=== PATIENT | male | born 1950 | race Caucasian/White ===

== ENCOUNTER 2016-11-20 13:36 | Outpatient (CLI) | payer MEDICARE, BC, OTHER | END 2016-11-20 13:37 | disposition home or self-care (01) | DX: K21.9 Gastro-esophageal reflux disease without esophagitis (principal); E03.9 Hypothyroidism, unspecified; Z12.5 Encounter for screening for malignant neoplasm of prostate; Z13.220 Encounter for screening for lipoid disorders; N40.1 Benign prostatic hyperplasia with lower urinary tract symptoms; K29.70 Gastritis, unspecified, without bleeding; Z78.9 Other specified health status | CPT/HCPCS: 36415; 80053; 80061; 84443; 85025; 86803; 87339; G0103 ==

== ENCOUNTER 2017-05-10 10:26 | Day surgery (SDC) | payer MEDICARE, BC, OTHER ==
[2017-05-10] MEDS ORDERED: LACTATED RINGERS 1,000 ML IV ONE (10:47)
[2017-05-10] MEDS ORDERED: MIDAZOLAM 2 MG/2 ML VIAL IVP ONE (13:09)
[2017-05-10] MEDS ORDERED: fentaNYL 100 MCG/2 ML VIAL IVP ONE (13:09)
[2017-05-10] MEDS ORDERED: LIDO GARGLE 30 ML BOTTLE TOP ONE (13:14)
[2017-05-10] MEDS ORDERED: BENZOCAINE/TETRACAINE/BUTAMBEN SPRAY 56 GM TOP ONE (13:14)
[2017-05-10 14:51] VITALS: BP 127/68
== END 2017-05-10 10:27 | disposition home or self-care (01) ==
LOC: SDS 10:26
PROVIDERS: ATTEND Surgery
PROC: 0DJ08ZZ Inspection of Upper Intestinal Tract, Via Natural or Artificial Opening Endoscopic (ICD-10-PCS; principal; 2017-05-10 12:00)
PROC: 0DJD8ZZ Inspection of Lower Intestinal Tract, Via Natural or Artificial Opening Endoscopic (ICD-10-PCS; 2017-05-10 12:00)
DX: Z12.11 Encounter for screening for malignant neoplasm of colon (principal); K21.9 Gastro-esophageal reflux disease without esophagitis; K22.2 Esophageal obstruction; K64.8 Other hemorrhoids
CPT/HCPCS: 43235; A9270; G0121; J7120

== ENCOUNTER 2017-11-30 08:00 | Outpatient (CLI) | payer MEDICARE, BC, OTHER ==
[2017-11-30 13:59] LABS: THYROID STIMULATING HORMONE 0.11 uIU/mL (0.34-5.60)
[2017-11-30 14:00] LABS: BASOPHILS # (AUTO) 0.1 10^3/uL (0.0-0.1); BASOPHILS % (AUTO) 1.2 %; EOSINOPHILS # (AUTO) 0.3 10^3/uL (0.0-0.7); EOSINOPHILS % (AUTO) 5.2 %; HGB - HEMOGLOBIN 16.6 g/dL (14.0-18.0); LYMPHOCYTES # (AUTO) 1.3 10^3/uL (1.5-3.5); LYMPHOCYTES % (AUTO) 25.1 %; MEAN CORPUSCULAR HEMOGLOBIN 31.2 pg (27.0-31.0); MEAN CORPUSCULAR HGB CONC 34.1 g/dL (32.0-36.0); MEAN CORPUSCULAR VOLUME 91.4 fL (80.0-94.0); MEAN PLATELET VOLUME 9.4 fL (7.4-11.4); MONOCYTES # (AUTO) 0.5 10^3/uL (0.0-1.0); MONOCYTES % (AUTO) 8.8 %; NEUTROPHILS # (AUTO) 3.1 10^3/uL (1.5-6.6); NEUTROPHILS % (AUTO) 59.7 %; PLT - PLATELET COUNT 197 10^3/uL (130-450); RED BLOOD COUNT 5.33 10^6/uL (4.70-6.10); WHITE BLOOD COUNT 5.1 x10^3/uL (4.8-10.8)
[2017-11-30 14:04] LABS: ALBUMIN 4.2 g/dL (3.2-5.5); ALBUMIN/GLOBULIN RATIO 1.4 (1.0-2.2); ALKALINE PHOSPHATASE 76 IU/L (42-121); ALT ALANINE AMINOTRANSFERASE 25 IU/L (10-60); AST ASPARTATE AMINOTRANSFERASE 25 IU/L (10-42); BILIRUBIN,TOTAL 0.6 mg/dL (0.2-1.0); BUN - BLOOD UREA NITROGEN 16 mg/dL (6-20); CALCIUM 9.3 mg/dL (8.5-10.3); CARBON DIOXIDE - CO2 31 mmol/L (21-32); CHLORIDE 102 mmol/L (101-111); CHOL/HDL RATIO 3.7 (<5.0); CHOLESTEROL 174 mg/dL; CREATININE 0.6 mg/dL (0.6-1.2); GFR - MDRD 134 (>89); GLUCOSE 91 mg/dL (70-100); HDL CHOLESTEROL 47 mg/dL; LDL CHOLESTEROL,CALCULATED 114 mg/dL; LDL/HDL RATIO 2.4 (<3.6); SODIUM 139 mmol/L (135-145); TOTAL PROTEIN 7.2 g/dL (6.7-8.2); VLDL CHOLESTEROL 13 mg/dL
[2017-11-30 15:23] LABS: FREE T4 (FREE THYROXINE) 1.27 ng/dL (0.58-1.64)
== END 2017-11-30 08:01 | disposition home or self-care (01) ==
LOC: LAB.WCP 08:00
PROVIDERS: ATTEND Family Medicine
DX: K29.70 Gastritis, unspecified, without bleeding (principal); E03.9 Hypothyroidism, unspecified; Z12.5 Encounter for screening for malignant neoplasm of prostate; Z13.220 Encounter for screening for lipoid disorders
CPT/HCPCS: 36415; 80053; 80061; 84439; 84443; 85025; G0103; 83721; 84153

== ENCOUNTER 2018-11-30 08:00 | Outpatient (CLI) | payer MEDICARE, BC, OTHER ==
[2018-11-30 13:39] LABS: BASOPHILS # (AUTO) 0.1 10^3/uL (0.0-0.1); BASOPHILS % (AUTO) 1.7 %; EOSINOPHILS # (AUTO) 0.1 10^3/uL (0.0-0.7); EOSINOPHILS % (AUTO) 1.8 %; LYMPHOCYTES # (AUTO) 1.4 10^3/uL (1.5-3.5); LYMPHOCYTES % (AUTO) 27.8 %; MEAN CORPUSCULAR HEMOGLOBIN 30.6 pg (27.0-31.0); MEAN CORPUSCULAR HGB CONC 33.3 g/dL (32.0-36.0); MEAN CORPUSCULAR VOLUME 91.8 fL (80.0-94.0); MEAN PLATELET VOLUME 8.8 fL (7.4-11.4); MONOCYTES # (AUTO) 0.4 10^3/uL (0.0-1.0); MONOCYTES % (AUTO) 8.1 %; NEUTROPHILS % (AUTO) 60.6 %; PLT - PLATELET COUNT 237 10^3/uL (130-450); RED BLOOD COUNT 5.23 10^6/uL (4.70-6.10); RED CELL DISTRIBUTION WIDTH 13.1 % (12.0-15.0)
[2018-11-30 14:11] LABS: ALKALINE PHOSPHATASE 69 IU/L (42-121); ALT ALANINE AMINOTRANSFERASE 28 IU/L (10-60); AST ASPARTATE AMINOTRANSFERASE 26 IU/L (10-42); CARBON DIOXIDE - CO2 30 mmol/L (21-32); CHLORIDE 103 mmol/L (101-111); CHOL/HDL RATIO 3.8 (<5.0); CHOLESTEROL 180 mg/dL; GLUCOSE 93 mg/dL (70-100); HDL CHOLESTEROL 47 mg/dL; LDL CHOLESTEROL,CALCULATED 122 mg/dL; LDL/HDL RATIO 2.6 (<3.6); SODIUM 140 mmol/L (135-145); VLDL CHOLESTEROL 11 mg/dL
[2018-11-30 14:33] LABS: ALBUMIN/GLOBULIN RATIO 1.4 (1.0-2.2); BILIRUBIN,TOTAL 0.8 mg/dL (0.2-1.0); BUN - BLOOD UREA NITROGEN 24 mg/dL (6-20); CREATININE 0.6 mg/dL (0.6-1.2); GFR - MDRD 133 (>89); TOTAL PROTEIN 6.9 g/dL (6.7-8.2)
== END 2018-11-30 23:59 | disposition home or self-care (01) ==
LOC: LAB.WCP 08:00
PROVIDERS: ATTEND Nurse Practitioner
DX: Z00.00 Encounter for general adult medical examination without abnormal findings (principal); E03.9 Hypothyroidism, unspecified; Z13.220 Encounter for screening for lipoid disorders; Z79.899 Other long term (current) drug therapy
CPT/HCPCS: 36415; 80053; 80061; 83721; 84443; 85025

== ENCOUNTER 2018-12-05 08:00 | Outpatient (CLI) | payer MEDICARE, BC, OTHER | END 2018-12-05 23:59 | disposition home or self-care (01) | LOC: LAB.WCP 08:00 | PROVIDERS: ATTEND Family Medicine | DX: Z12.5 Encounter for screening for malignant neoplasm of prostate (principal); E03.9 Hypothyroidism, unspecified | CPT/HCPCS: 36415; 84439; G0103; 84153 ==

== ENCOUNTER 2019-02-06 18:05 | Emergency (ER) | payer MEDICARE, BC, OTHER ==
[2019-02-06 18:21] VITALS: BP 146/89
[2019-02-06 18:45] LABS: BASOPHILS # (AUTO) 0.1 10^3/uL (0.0-0.1); BASOPHILS % (AUTO) 0.7 %; EOSINOPHILS # (AUTO) 0.3 10^3/uL (0.0-0.7); EOSINOPHILS % (AUTO) 3.8 %; HGB - HEMOGLOBIN 17.2 g/dL (14.0-18.0); LYMPHOCYTES # (AUTO) 1.5 10^3/uL (1.5-3.5); LYMPHOCYTES % (AUTO) 22.1 %; MEAN CORPUSCULAR HEMOGLOBIN 30.9 pg (27.0-31.0); MEAN CORPUSCULAR HGB CONC 33.7 g/dL (32.0-36.0); MEAN CORPUSCULAR VOLUME 91.9 fL (80.0-94.0); MEAN PLATELET VOLUME 9.5 fL (7.4-11.4); MONOCYTES # (AUTO) 0.7 10^3/uL (0.0-1.0); MONOCYTES % (AUTO) 10.3 %; NEUTROPHILS # (AUTO) 4.3 10^3/uL (1.5-6.6); PLT - PLATELET COUNT 258 10^3/uL (130-450); RED BLOOD COUNT 5.56 10^6/uL (4.70-6.10); RED CELL DISTRIBUTION WIDTH 12.9 % (12.0-15.0); WHITE BLOOD COUNT 6.9 x10^3/uL (4.8-10.8)
[2019-02-06 18:47] LABS: BILIRUBIN,URINE NEGATIVE (NEGATIVE); GLUCOSE, URINE (UA) NEGATIVE (NEGATIVE); KETONES,URINE (UA) TRACE mg/dL (NEGATIVE); LEUKOCYTE ESTERASE, URINE NEGATIVE (NEGATIVE); NITRITE,URINE POSITIVE (NEGATIVE); OCCULT BLOOD,URINE LARGE (NEGATIVE); PH,URINE 6.5 PH (5.0-7.5); PROTEIN,URINE 100 mg/dL (NEGATIVE); UROBILINOGEN,URINE 0.2 (NORMAL) E.U./dL (NORMAL)
[2019-02-06 18:51] LABS: CLARITY,URINE CLOUDY (CLEAR)
[2019-02-06 18:52] LABS: BACTERIA,URINE Few /HPF (None Seen); RBC,URINE TNTC /HPF (0-5); SQUAMOUS EPITHELIAL CELL,UR NONE SEEN (<= Few)
[2019-02-06] MEDS ORDERED: SULFAMETH/TRIMETH DS 800/160 MG TABLET PO STA (18:56)
[2019-02-06] MEDS ORDERED: PHENAZOPYRIDINE 100 MG TABLET PO STA (18:56)
[2019-02-06] MEDS ORDERED: NAPROXEN 250 MG TABLET PO STA (18:56)
[2019-02-06 18:58] LABS: ALBUMIN 4.4 g/dL (3.2-5.5); ALBUMIN/GLOBULIN RATIO 1.2 (1.0-2.2); BILIRUBIN,TOTAL 0.9 mg/dL (0.2-1.0); CALCIUM 9.7 mg/dL (8.5-10.3); CREATININE 0.8 mg/dL (0.6-1.2)
--- NOTE | 2019-02-06 18:58 | ED Physician Documentation ---
PD HPI MALE - Stated complaint Stated Complaint: BLOOD IN URINE - Chief complaint Chief Complaint: Abd Pain - History obtained from History obtained from: Patient - History of Present Illness Timing - onset: Today Timing - duration: Days (1-2) Timing - details: Gradual onset (he was noting some burning or discomfort with urination and then noted gross hematuria today. Is not having flank pain. Has had kidney stones in the past with some hematuria, so thought it might be stones. No fever.) Associated symptoms: Dysuria, Hematuria Similar symptoms before: Diagnosis (hematuria with kidney stones in the past.) Recently seen: Not recently seen Review of Systems Constitutional: denies: Fever, Myalgias : reports: Dysuria, Frequency, Hematuria. 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 HEENT: Tonsil/Adenoidectomy - Present Medications Home Medications: Ambulatory Orders Medication Instructions Recorded Confirmed Levothyroxine [Synthroid] 137 mcg ORAL DAILY 05/16/14 05/10/17 Omeprazole [PriLOSEC] 20 mg PO DAILY 05/10/17 05/10/17 Naproxen 375 mg PO BID #14 tablet 02/06/19 Sulfamethox/Trimeth 800/160 1 each PO BID #14 tablet 02/06/19 [Bactrim Ds 800/160] - Allergies Allergies/Adverse Reactions: Allergies Allergy/AdvReac Type Severity Reaction Status Date / Time No Known Drug Allergies Allergy Verified 02/06/19 18:20 - Social History Does the pt smoke?: No Smoking Status: Never smoker Does the pt drink ETOH?: No Does the pt have substance abuse?: No - Immunizations Immunizations are current?: Yes PD ED PE NORMAL - Vitals Vital signs reviewed: Yes - General General: Alert and oriented X 3, No acute distress, Well developed/nourished - Abdomen Abdomen: Soft, Non tender - Male Male : Other (no discharge at meatus. Normal external genitalia. ) - Back Back: No CVA TTP Results - Vitals Vitals: Vital Signs - 24 hr 02/06/19 18:15 Temperature 36.6 C Heart Rate 91 Respiratory 18 Rate Blood Pressure 146/89 H O2 Saturation 100 Oxygen O2 Source Room air - Labs Labs: Microbiology 02/06/19 18:27 Urine Culture - Preliminary Urine,Clean Catch CULTURE IN PROGRESS. RESULTS TO FOLLOW. Laboratory Tests 02/06/19 02/06/19 02/06/19 18:27 18:35 18:35 WBC 6.9 RBC 5.56 Hgb 17.2 Hct 51.1 MCV 91.9 MCH 30.9 MCHC 33.7 RDW 12.9 Plt Count 258 MPV 9.5 Neut # (Auto) 4.3 Lymph # (Auto) 1.5 [place] # (Auto) 0.7 Eos # (Auto) 0.3 Baso # (Auto) 0.1 Absolute Nucleated RBC 0.00 Nucleated RBC % 0.0 Sodium 143 Potassium 4.0 Chloride 104 Carbon Dioxide 28 Anion Gap 11.0 BUN 30 H Creatinine 0.8 Estimated GFR (MDRD) 96 Glucose 105 H Calcium 9.7 Total Bilirubin 0.9 AST 25 ALT 26 Alkaline Phosphatase 82 Total Protein 8.0 Albumin 4.4 Globulin 3.6 Albumin/Globulin Ratio 1.2 Lipase 28 Urine Color RED/BLOODY Urine Clarity CLOUDY Urine pH 6.5 Ur Specific [place] 1.025 Urine Protein 100 H Urine Glucose (UA) NEGATIVE Urine Ketones TRACE Urine Occult Blood LARGE H Urine Nitrite POSITIVE H Urine Bilirubin NEGATIVE Urine Urobilinogen 0.2 (NORMAL) Ur Leukocyte Esterase NEGATIVE Urine RBC TNTC H Urine WBC 11-25 H Ur Squamous Epith Cells NONE SEEN Urine Bacteria Few Ur Microscopic Review INDICATED Urine Culture Comments INDICATED PD MEDICAL DECISION MAKING - ED course Complexity details: considered differential (significant hematuria but has positive UTI, so will treat that. Hgb is good so he should be okay if still some hematuria short term. ), d/w patient Departure - Departure Disposition: 01 Home, Self Care Clinical Impression: UTI (urinary tract infection) Qualifiers: Urinary tract infection type: acute cystitis Hematuria presence: with hematuria Qualified Code(s): N30.01 - Acute cystitis with hematuria Hematuria Qualifiers: Hematuria type: gross Qualified Code(s): R31.0 - Gross hematuria Instructions: ED UTI Cystitis Male Follow-Up: Celsa Martinez DO [Primary Care Provider] - YORDY KAMARA [Physician No Access] - Prescriptions: Naproxen 375 mg PO BID #14 tablet Sulfamethox/Trimeth 800/160 [Bactrim Ds 800/160] 1 each PO BID #14 tablet Comments: Stay well-hydrated. Your blood count is good so you should be okay if you have still some ongoing bleeding with the urine for the short-term. There is signs of infection on the urine test so we will treated with an antibiotic. Also some anti-inflammatories such as naproxen twice daily with food. This will try to get the irritation and infection down in the bladder so the bleeding stops. Recheck if not improved over the next couple of days. Discharge Date/Time: 02/06/19 19:13
== END 2019-02-06 19:13 | disposition home or self-care (01) ==
LOC: ED 18:05
DX: N30.01 Acute cystitis with hematuria (principal)
CPT/HCPCS: 36415; 80053; 81001; 83690; 85025; 87086; 99283; A9270; 81003

== ENCOUNTER 2019-02-09 19:51 | Emergency (ER) | payer MEDICARE, BC, OTHER ==
--- NOTE | 2019-02-09 21:37 | ED Physician Documentation ---
PD HPI MALE - Stated complaint Stated Complaint: MALE - Chief complaint Chief Complaint: General - History obtained from History obtained from: Patient - History of Present Illness Timing - onset: How many days ago (3) Timing - duration: Days (3) Timing - details: Abrupt onset Pain level max: 0 Pain level now: 0 Associated symptoms: Hematuria. No: Dysuria, Urinary frequency, Unable to urinate, Discharge, Abdominal pain, Back pain, Indwelling catheter Similar symptoms before: Diagnosis (History of kidney stones as well as prostate enlargement that has required TURP. His stones have all passed spontaneously with the most recent one being in September 2017.) Recently seen: Emergency Dept - Additional information Additional information: This is a 5-year-old man who presents with his complains that he was seeing blood in his urine 3 days ago when he came into the emergency department was diagnosed with urinary tract infection placed on Bactrim and naproxen and things have been pretty stable until today when he feels like the blood has increased as of this morning. He still has no pain in his abdomen, to urinate or in his back. He does have a history of kidney stones first 1 being in 2016 and he passed subsequently 3 stones spontaneously and the most recent one in September 2017. He also has a urologist who has evaluated him for hematuria in the past that was removed related to bleeding from the prostate. He has had a TURP in the past. He is not taking any blood thinners. [place] a little flushed this evening but no fever. He has not been dizzy. Denies nausea or vomiting. Review of Systems Constitutional: denies: Fever GI: denies: Abdominal Pain : reports: Hematuria. 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 HEENT: Tonsil/Adenoidectomy - Present Medications Home Medications: Ambulatory Orders Medication Instructions Recorded Confirmed Levothyroxine [Synthroid] 137 mcg ORAL DAILY 05/16/14 05/10/17 Omeprazole [PriLOSEC] 20 mg PO DAILY 05/10/17 05/10/17 Naproxen 375 mg PO BID #14 tablet 02/06/19 Sulfamethox/Trimeth 800/160 1 each PO BID #14 tablet 02/06/19 [Bactrim Ds 800/160] - Allergies Allergies/Adverse Reactions: Allergies Allergy/AdvReac Type Severity Reaction Status Date / Time No Known Drug Allergies Allergy Verified 02/09/19 19:59 - Social History Does the pt smoke?: No Smoking Status: Never smoker Does the pt drink ETOH?: No Does the pt have substance abuse?: No - Immunizations Immunizations are current?: Yes - POLST Patient has POLST: No PD ED PE NORMAL - Vitals Vital signs reviewed: Yes - General General: Alert and oriented X 3, No acute distress, Well developed/nourished - HEENT HEENT: Atraumatic, Moist mucous membranes - Neck Neck: Supple, no meningeal sign - Cardiac Cardiac: RRR, No murmur - Respiratory Respiratory: No respiratory distress, Clear bilaterally - Abdomen Abdomen: Normal bowel sounds, Soft, Non tender, Non distended - Derm Derm: Normal color, Warm and dry, No rash - Neuro Neuro: Alert and oriented X 3, Other (No gross neurological deficits.) - Psych Psych: Other (Patient does appear mildly anxious.) Results - Vitals Vitals: Vital Signs - 24 hr 02/09/19 19:54 Temperature 36.4 C L Heart Rate 78 Respiratory 19 Rate Blood Pressure 152/88 H O2 Saturation 97 Oxygen O2 Source Room air - Labs Labs: Laboratory Tests 02/09/19 21:48 Urine Color YELLOW Urine Clarity CLEAR Urine pH 6.0 Ur Specific [place] 1.010 Urine Protein TRACE Urine Glucose (UA) NEGATIVE Urine Ketones NEGATIVE Urine Occult Blood LARGE H Urine Nitrite NEGATIVE Urine Bilirubin NEGATIVE Urine Urobilinogen 0.2 (NORMAL) Ur Leukocyte Esterase NEGATIVE Urine RBC 11-25 H Urine WBC 0-3 Ur Squamous Epith Cells NONE SEEN Urine Bacteria None Seen Ur Microscopic Review INDICATED Urine Culture Comments NOT INDICATED PD MEDICAL DECISION MAKING - ED course Complexity details: reviewed old records, reviewed results, d/w patient ED course: The urinalysis tonight has only 11-25 red blood cells in it compared to too numerous to count red blood cells when he was here 3 days ago. There is also no leukocyte esterase or white blood cells noted on the urine tonight. Patient is not having any pain to suggest that this would be a passing kidney stone and he has already established with a urologist in the past. Discussed with the patient that I think he does not really need any acute work-up at this time. I think he does need to get back to see the urologist even if this is a stone is passed as previously ones spontaneously and is not having any pain currently. He has been drinking plenty of water.His questions were answered and he will be discharged to follow-up with his urologist. Cautioned to return if he has clots in the urine, cannot urinate, has a fever or develops pain or feels dizzy. Departure - Departure Disposition: Home, Self Care Clinical Impression: Hematuria Qualifiers: Hematuria type: gross Qualified Code(s): R31.0 - Gross hematuria Condition: Good Instructions: ED Hematuria Follow-Up: Celsa Martinez DO [Primary Care Provider] - YORDY KAMARA [Physician No Access] - Comments: Finish the Bactrim that you were prescribed. I would recommend stopping the naproxen it can lead to a little bit of blood thinning. Make sure that you are drinking plenty of water to dilute the urine. Contact your urologist for follow-up if the bleeding continues before your follow-up next month. Return if you are passing clots, are unable to urinate, you develop fever or dizziness, you develop any pain.
[2019-02-09 21:54] LABS: BILIRUBIN,URINE NEGATIVE (NEGATIVE); GLUCOSE, URINE (UA) NEGATIVE (NEGATIVE); KETONES,URINE (UA) NEGATIVE (NEGATIVE); LEUKOCYTE ESTERASE, URINE NEGATIVE (NEGATIVE); NITRITE,URINE NEGATIVE (NEGATIVE); OCCULT BLOOD,URINE LARGE (NEGATIVE); PROTEIN,URINE TRACE mg/dL (NEGATIVE); UROBILINOGEN,URINE 0.2 (NORMAL) E.U./dL (NORMAL)
[2019-02-09 21:58] LABS: CLARITY,URINE CLEAR (CLEAR)
[2019-02-09 22:00] LABS: BACTERIA,URINE None Seen /HPF (None Seen); SQUAMOUS EPITHELIAL CELL,UR NONE SEEN (<= Few)
[2019-02-09 22:31] VITALS: BP 142/83
== END 2019-02-09 22:32 | disposition home or self-care (01) ==
LOC: ED 19:51
DX: R31.0 Gross hematuria (principal)
CPT/HCPCS: 81001; 81003; 87086; 99282; 99283

== ENCOUNTER 2019-02-16 14:43 | Outpatient (CLI) | payer MEDICARE, BC, OTHER ==
[2019-02-16 19:16] LABS: BILIRUBIN,URINE NEGATIVE (NEGATIVE); GLUCOSE, URINE (UA) NEGATIVE (NEGATIVE); KETONES,URINE (UA) TRACE mg/dL (NEGATIVE); LEUKOCYTE ESTERASE, URINE NEGATIVE (NEGATIVE); NITRITE,URINE NEGATIVE (NEGATIVE); OCCULT BLOOD,URINE NEGATIVE (NEGATIVE); PROTEIN,URINE NEGATIVE (NEGATIVE); UROBILINOGEN,URINE 0.2 (NORMAL) E.U./dL (NORMAL)
[2019-02-16 19:17] LABS: CLARITY,URINE CLEAR (CLEAR)
== END 2019-02-16 23:59 | disposition home or self-care (01) ==
LOC: LAB.WCP 14:43
PROVIDERS: ATTEND Family Medicine
DX: R31.9 Hematuria, unspecified (principal)
CPT/HCPCS: 81001; 81003; 87086

== ENCOUNTER 2019-09-15 13:42 | Outpatient (CLI) | payer MEDICARE, BC, OTHER | END 2019-09-15 23:59 | disposition home or self-care (01) | LOC: LAB.WCP 13:42 | PROVIDERS: ATTEND Family Medicine | DX: R31.9 Hematuria, unspecified (principal) | CPT/HCPCS: 87086 ==

== ENCOUNTER 2019-12-07 08:47 | Outpatient (CLI) | payer MEDICARE, BC, OTHER ==
[2019-12-07 13:18] LABS: BASOPHILS % (AUTO) 0.9 %; EOSINOPHILS # (AUTO) 0.3 10^3/uL (0.0-0.7); EOSINOPHILS % (AUTO) 6.1 %; HGB - HEMOGLOBIN 16.4 g/dL (14.0-18.0); LYMPHOCYTES # (AUTO) 1.3 10^3/uL (1.5-3.5); LYMPHOCYTES % (AUTO) 31.1 %; MEAN CORPUSCULAR HEMOGLOBIN 31.2 pg (27.0-31.0); MEAN CORPUSCULAR HGB CONC 33.1 g/dL (32.0-36.0); MEAN CORPUSCULAR VOLUME 94.3 fL (80.0-94.0); MEAN PLATELET VOLUME 10.6 fL (7.4-11.4); MONOCYTES # (AUTO) 0.5 10^3/uL (0.0-1.0); MONOCYTES % (AUTO) 10.5 %; NEUTROPHILS # (AUTO) 2.2 10^3/uL (1.5-6.6); NEUTROPHILS % (AUTO) 51.2 %; PLT - PLATELET COUNT 238 10^3/uL (130-450); RED BLOOD COUNT 5.25 10^6/uL (4.70-6.10); RED CELL DISTRIBUTION WIDTH 12.9 % (12.0-15.0); WHITE BLOOD COUNT 4.3 x10^3/uL (4.8-10.8)
[2019-12-07 13:57] LABS: ALBUMIN 4.2 g/dL (3.2-5.5); ALBUMIN/GLOBULIN RATIO 1.4 (1.0-2.2); ALKALINE PHOSPHATASE 66 IU/L (42-121); ALT ALANINE AMINOTRANSFERASE 25 IU/L (10-60); AST ASPARTATE AMINOTRANSFERASE 22 IU/L (10-42); BILIRUBIN,TOTAL 0.6 mg/dL (0.2-1.0); BUN - BLOOD UREA NITROGEN 26 mg/dL (6-20); CALCIUM 9.1 mg/dL (8.5-10.3); CARBON DIOXIDE - CO2 31 mmol/L (21-32); CHLORIDE 102 mmol/L (101-111); CHOL/HDL RATIO 3.8 (<5.0); CHOLESTEROL 191 mg/dL; CREATININE 0.7 mg/dL (0.6-1.2); GLUCOSE 94 mg/dL (70-100); HDL CHOLESTEROL 50 mg/dL; LDL CHOLESTEROL,CALCULATED 129 mg/dL; LDL/HDL RATIO 2.6 (<3.6); SODIUM 138 mmol/L (135-145); TOTAL PROTEIN 7.2 g/dL (6.7-8.2); VLDL CHOLESTEROL 12 mg/dL
[2019-12-07 15:08] LABS: FREE T4 (FREE THYROXINE) 1.21 ng/dL (0.58-1.64)
[2019-12-08 16:08] LABS: HEPATITIS C ANTIBODY NON-REACTIVE (NON-REACTIVE)
== END 2019-12-07 23:59 | disposition home or self-care (01) ==
LOC: LAB.WCP 08:47
PROVIDERS: ATTEND Family Medicine
DX: Z79.899 Other long term (current) drug therapy (principal); Z13.220 Encounter for screening for lipoid disorders; Z12.5 Encounter for screening for malignant neoplasm of prostate; E03.9 Hypothyroidism, unspecified; Z11.59 Encounter for screening for other viral diseases
CPT/HCPCS: 36415; 80053; 80061; 84439; 84443; 85025; 86803; G0103; 83721; 84153

== ENCOUNTER 2020-02-16 11:51 | Outpatient (CLI) | payer MEDICARE, BC, OTHER | END 2020-02-16 11:52 | disposition home or self-care (01) | LOC: COV 11:51 | PROVIDERS: ATTEND Family Medicine | DX: Z01.812 Encounter for preprocedural laboratory examination (principal); Z20.828 Contact with and (suspected) exposure to other viral communicable diseases ==

== ENCOUNTER 2020-03-27 07:15 | Outpatient (CLI) | payer MEDICARE, BC, OTHER ==
[2020-03-27 07:39] LABS: CALCIUM 9.4 mg/dL (8.5-10.3); CREATININE 0.8 mg/dL (0.6-1.2)
[2020-03-27] MEDS ORDERED: IOVERSOL 320 100 ML VIAL IVP ONE ×3 (08:10→10:28)
--- NOTE | 2020-03-27 09:33 | CT Report ---
PROCEDURE: IVP INDICATIONS: HEMATURIA CONTRAST: IV CONTRAST: Optiray 320 ml: 140 PO CONTRAST: *NO PO CONTRAST TECHNIQUE: After the administration of intravenous contrast, 5 mm thick sections acquired from the diaphragms to the symphysis. 5 mm thick coronal and sagittal reformats were acquired. For radiation dose reducti on, the following was used: automated exposure control, adjustment of mA and/or kV according to heather ent size. COMPARISON: None. FINDINGS: Image quality: Excellent. Lung bases: Lung bases are clear. Heart size is normal. A pair of left renal calculi are seen measuring up to 3-4 mm. There is also 2 mm right renal calculus . Bilateral pelviectasis incidentally noted. No perinephric stranding identified. No ureteral calculu s is seen. 7 mm calculus seen in the region of the bladder, image 72/5. Prostate enlarged and demonst rates slight mass effect upon the inferior bladder wall. Solid organs: Liver and spleen are normal in size and enhancement. Gallbladder unremarkable Biliar y system is non dilated. Pancreas enhances normally. No adrenal nodules. The appendix is not clear ly identified however no suspicious inflammatory changes in the right lower quadrant. Peritoneum and bowel: Bowel loops demonstrate normal wall thickness and caliber. No free fluid or a ir. Nodes and vessels: No retroperitoneal or mesenteric adenopathy by size criteria. Aorta and inferior vena cava are normal in size. Abdominal wall: No ventral hernias. Pelvis: No pathologic free pelvic fluid. No inguinal hernias or adenopathy. Multilevel Schmorl's nodes. Focal sclerosis within the right posteromedial ilium is nonspecific howev er unchanged since 2016. IMPRESSION: Bilateral nephrolithiasis measuring up to 4 mm on the left and up to 2 mm the right. 7 mm calculus thought to be within the bladder although this could be confirmed cystoscopically, or w ith CT in prone position to definitively assess mobility. Enlarged prostate. This closely abuts the inferior bladder wall and if there is suspicion of bladder wall invasion, cystoscopic evaluation could be performed. Reviewed by: Compa Dickson MD on 03/27/2020 9:31 AM PDT Approved by: Compa Dickson MD on 03/27/2020 9:31 AM PDT Station ID: [id number]
== END 2020-03-27 07:16 | disposition home or self-care (01) ==
LOC: DI 07:15
PROVIDERS: ATTEND Family Medicine
DX: N21.0 Calculus in bladder (principal); N20.0 Calculus of kidney; N40.0 Benign prostatic hyperplasia without lower urinary tract symptoms
CPT/HCPCS: 36415; 74178; 80048; Q9967

== ENCOUNTER 2020-12-09 10:40 | Outpatient (CLI) | payer MEDICARE, BC, OTHER ==
[2020-12-09 18:16] LABS: BASOPHILS # (AUTO) 0.1 10^3/uL (0.0-0.1); BASOPHILS % (AUTO) 0.9 %; EOSINOPHILS # (AUTO) 0.2 10^3/uL (0.0-0.7); EOSINOPHILS % (AUTO) 4.5 %; HCT - HEMATOCRIT 50.8 % (42.0-52.0); HGB - HEMOGLOBIN 16.4 g/dL (14.0-18.0); LYMPHOCYTES # (AUTO) 1.6 10^3/uL (1.5-3.5); LYMPHOCYTES % (AUTO) 29.9 %; MEAN CORPUSCULAR HEMOGLOBIN 30.4 pg (27.0-31.0); MEAN CORPUSCULAR HGB CONC 32.3 g/dL (32.0-36.0); MEAN CORPUSCULAR VOLUME 94.2 fL (80.0-94.0); MEAN PLATELET VOLUME 10.6 fL (7.4-11.4); MONOCYTES # (AUTO) 0.5 10^3/uL (0.0-1.0); MONOCYTES % (AUTO) 9.4 %; NEUTROPHILS # (AUTO) 2.9 10^3/uL (1.5-6.6); NEUTROPHILS % (AUTO) 55.1 %; PLT - PLATELET COUNT 246 10^3/uL (130-450); RED BLOOD COUNT 5.39 10^6/uL (4.70-6.10); RED CELL DISTRIBUTION WIDTH 13.2 % (12.0-15.0); WHITE BLOOD COUNT 5.3 x10^3/uL (4.8-10.8)
[2020-12-09 18:53] LABS: ALBUMIN 4.5 g/dL (3.2-5.5); ALBUMIN/GLOBULIN RATIO 1.5 (1.0-2.2); ALKALINE PHOSPHATASE 81 IU/L (42-121); ALT ALANINE AMINOTRANSFERASE 25 IU/L (10-60); AST ASPARTATE AMINOTRANSFERASE 24 IU/L (10-42); BILIRUBIN,TOTAL 1.1 mg/dL (0.2-1.0); BUN - BLOOD UREA NITROGEN 24 mg/dL (6-20); CALCIUM 9.5 mg/dL (8.5-10.3); CARBON DIOXIDE - CO2 30 mmol/L (21-32); CHLORIDE 99 mmol/L (101-111); CHOL/HDL RATIO 3.8 (<5.0); CHOLESTEROL 212 mg/dL; CREATININE 0.8 mg/dL (0.6-1.2); GFR - MDRD 95 (>89); GLUCOSE 87 mg/dL (70-100); HDL CHOLESTEROL 56 mg/dL; LDL CHOLESTEROL,CALCULATED 139 mg/dL; LDL/HDL RATIO 2.5 (<3.6); POTASSIUM 4.5 mmol/L (3.5-5.0); SODIUM 137 mmol/L (135-145); TOTAL PROTEIN 7.6 g/dL (6.7-8.2); TRIGLYCERIDES 85 mg/dL; VLDL CHOLESTEROL 17 mg/dL
[2020-12-09 19:08] LABS: THYROID STIMULATING HORMONE 0.15 uIU/mL (0.34-5.60)
[2020-12-09 19:50] LABS: FREE T4 (FREE THYROXINE) 1.21 ng/dL (0.58-1.64)
== END 2020-12-09 23:59 | disposition home or self-care (01) ==
LOC: LAB.WCP 10:40
PROVIDERS: ATTEND Family Medicine
DX: N40.1 Benign prostatic hyperplasia with lower urinary tract symptoms (principal); Z79.899 Other long term (current) drug therapy; Z12.5 Encounter for screening for malignant neoplasm of prostate; N13.8 Other obstructive and reflux uropathy; E03.9 Hypothyroidism, unspecified
CPT/HCPCS: 36415; 80053; 80061; 84439; 84443; 85025; G0103; 83721; 84153

== ENCOUNTER 2021-06-23 12:17 | Outpatient (CLI) | payer MEDICARE, BC, OTHER ==
[2021-06-23 18:26] LABS: ALBUMIN 4.3 g/dL (3.2-5.5); ALBUMIN/GLOBULIN RATIO 1.4 (1.0-2.2); BILIRUBIN,TOTAL 0.8 mg/dL (0.2-1.0); CALCIUM 9.8 mg/dL (8.5-10.3); CREATININE 0.8 mg/dL (0.6-1.2); POTASSIUM 4.3 mmol/L (3.5-5.0); TOTAL PROTEIN 7.4 g/dL (6.7-8.2)
[2021-06-23 18:44] LABS: BASOPHILS # (AUTO) 0.1 10^3/uL (0.0-0.1); EOSINOPHILS # (AUTO) 0.4 10^3/uL (0.0-0.7); EOSINOPHILS % (AUTO) 6.9 %; HCT - HEMATOCRIT 51.4 % (42.0-52.0); HGB - HEMOGLOBIN 17.1 g/dL (14.0-18.0); LYMPHOCYTES # (AUTO) 1.8 10^3/uL (1.5-3.5); LYMPHOCYTES % (AUTO) 30.1 %; MEAN CORPUSCULAR HGB CONC 33.3 g/dL (32.0-36.0); MEAN CORPUSCULAR VOLUME 93.3 fL (80.0-94.0); MEAN PLATELET VOLUME 10.8 fL (7.4-11.4); MONOCYTES # (AUTO) 0.6 10^3/uL (0.0-1.0); MONOCYTES % (AUTO) 9.5 %; NEUTROPHILS % (AUTO) 52.3 %; PLT - PLATELET COUNT 266 10^3/uL (130-450); RED BLOOD COUNT 5.51 10^6/uL (4.70-6.10); RED CELL DISTRIBUTION WIDTH 13.2 % (12.0-15.0); WHITE BLOOD COUNT 5.8 x10^3/uL (4.8-10.8)
== END 2021-06-23 23:59 | disposition home or self-care (01) ==
LOC: LAB.WCP 12:17
PROVIDERS: ATTEND Nurse Practitioner
DX: N20.0 Calculus of kidney (principal)
CPT/HCPCS: 36415; 80053; 85025

== ENCOUNTER 2021-07-07 07:58 | Outpatient (CLI) | payer MEDICARE, BC, OTHER ==
[2021-07-07] MEDS ORDERED: IOVERSOL 320 100 ML VIAL IVP ONE ×2 (08:10→08:38)
--- NOTE | 2021-07-07 16:27 | CT Report ---
PROCEDURE: IVP INDICATIONS: HEMATURIA TECHNIQUE: Noncontrast 5 mm axial images obtained through the abdomen and pelvis. After the administration of in travenous contrast, 5 mm thick sections acquired from the diaphragms to the symphysis during the liam yed nephrographic phase. 5 mm thick coronal and sagittal reformats were acquired. For radiation dos e reduction, the following was used: automated exposure control, adjustment of mA and/or kV accordin g to patient size. COMPARISON: CT IVP 03/27/2020, 04/24/2016. FINDINGS: Image quality: Excellent. Lung bases: Lung bases are clear. Heart size is normal. Urinary system: There are 2 small nonobstructing stones within the right kidney, with the largest sto ne measuring 2 to 3 mm. On the left, there are also 2 stones, with the larger stone measuring up to 3 to 4 mm. No obstructing stones visualized. There are bilateral extrarenal pelves with mild p elvocaliectasis, right greater than left, extending to the ureteropelvic junctions. The findings are similar compared to the prior studies and are suggestive of mild UPJ obstructions. There is symmetric renal enhancement. Multiple bilateral simple appearing cysts are redemonstrated. The opacified renal collecting systems demonstrate no suspicious filling defects. The ureters are nondistended without u reteral stones. Bladder demonstrates normal wall thickness. There are 3 small calcifications along th e base of the prostate extending to the bladder. There is moderate heterogeneous enlargement of the p rostate. Solid organs: There is hypoattenuation of the liver consistent with fatty infiltration. Gallbladder a ppears within normal limits without calcified gallstones. Biliary system is non dilated. Pancreas en hances normally. No adrenal nodules. Peritoneum and bowel: Bowel loops demonstrate normal wall thickness and caliber. There is colonic di verticulosis without acute diverticulitis. No free fluid or air. Nodes and vessels: No retroperitoneal or mesenteric adenopathy by size criteria. Aorta and inferior vena cava are normal in size. Abdominal wall: No ventral hernias. Pelvis: No pathologic free pelvic fluid. No inguinal hernias or adenopathy. Bones: No suspicious bony lesions. No vertebral body compression fractures. IMPRESSION: 1. Bilateral nephrolithiasis without evidence of obstructing stones. 2. Mild bilateral pelvocaliectasis redemonstrated suggestive of mild chronic UPJ obstructions. 3. Moderate enlargement of the prostate with small foci of calcifications along the base of the prost ate extending into the bladder. Reviewed by: Shaggy Hassan MD on 07/07/2021 3:26 PM [place] Approved by: Shaggy Hassan MD on 07/07/2021 3:26 PM [facility] Station ID: [id number]
== END 2021-07-07 07:59 | disposition home or self-care (01) ==
LOC: DI 07:58
PROVIDERS: ATTEND Urology
DX: N20.0 Calculus of kidney (principal); N42.0 Calculus of prostate; N21.0 Calculus in bladder; N28.89 Other specified disorders of kidney and ureter; N40.1 Benign prostatic hyperplasia with lower urinary tract symptoms; R33.8 Other retention of urine
CPT/HCPCS: 51702; 74178; 99282; 99283; Q9967

== ENCOUNTER 2021-07-07 12:12 | Emergency (ER) | payer MEDICARE, BC, OTHER ==
[2021-07-07 12:19] VITALS: BP 160/80
--- NOTE | 2021-07-07 12:36 | ED Physician Documentation ---
History of Present Illness - Stated complaint Stated Complaint: UNABLE TO VOID - Chief complaint Chief Complaint: Abd Pain - History obtained from History obtained from: Patient - Additonal information Additional information: Patient comes emergency department chief complaint of urinary retention. The patient has a longstanding history of benign prostatic hypertrophy and has had episodes of urinary retention previously, requiring temporary placement of Krishnan catheter with leg bag. He states that he believes what triggered it today was that he had to come in early this morning for a CT scan with IV contrast and he thinks that is what caused him to become retaining. He has not been able to urinate other than a very slow dribble since 8:00 this morning. He denies any fevers or chills. No abdominal or back pain. The patient states he is otherwise been well recently. He has some low abdominal discomfort that is centrally located. No other complaints at this time. Review of Systems Ten Systems: 10 systems reviewed and negative Constitutional: reports: Reviewed and negative Eyes: reports: Reviewed and negative Ears: reports: Reviewed and negative Nose: reports: Reviewed and negative Throat: reports: Reviewed and negative Cardiac: reports: Reviewed and negative Respiratory: reports: Reviewed and negative GI: reports: Abdominal Pain : reports: Unable to Void Skin: reports: Reviewed and negative Musculoskeletal: reports: Reviewed and negative Neurologic: reports: Reviewed and negative Psychiatric: reports: Reviewed and negative Endocrine: reports: Reviewed and negative Immunocompromised: reports: Reviewed and negative PD PAST MEDICAL HISTORY - Past Medical History Cardiovascular: High cholesterol Respiratory: None Neuro: None Endocrine/Autoimmune: HyPOthyroidism GI: GERD, Ulcers : None HEENT: None Psych: Depression Musculoskeletal: Osteoarthritis, Other Derm: Other - Past Surgical History Past Surgical History: Yes 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 HEENT: Tonsil/Adenoidectomy - Present Medications Home Medications: Ambulatory Orders Medication Instructions Recorded Confirmed Levothyroxine [Synthroid] 137 mcg ORAL DAILY 05/16/14 05/10/17 Omeprazole [PriLOSEC] 20 mg PO DAILY 05/10/17 05/10/17 Naproxen 375 mg PO BID #14 tablet 02/06/19 Sulfamethox/Trimeth 800/160 1 each PO BID #14 tablet 02/06/19 [Bactrim Ds 800/160] - Allergies Allergies/Adverse Reactions: Allergies Allergy/AdvReac Type Severity Reaction Status Date / Time No Known Drug Allergies Allergy Verified 07/07/21 12:15 - Social History Does the pt smoke?: No Smoking Status: Never smoker Does the pt drink ETOH?: No Does the pt have substance abuse?: No - Immunizations Immunizations are current?: Yes - POLST Patient has POLST: No PD ED PE NORMAL - Vitals Vital signs reviewed: Yes - General General: Alert and oriented X 3, No acute distress, Well developed/nourished - HEENT HEENT: Atraumatic, PERRL, EOMI, Moist mucous membranes - Neck Neck: Supple, no meningeal sign - Cardiac Cardiac: RRR, No murmur, Strong equal pulses - Respiratory Respiratory: No respiratory distress, Clear bilaterally - Abdomen Abdomen: Soft, Other (Moderate tenderness palpation suprapubic area with distended lower abdomen and palpably distended bladder.) - Derm Derm: Normal color, Warm and dry, No rash - Extremities Extremities: No deformity, No edema, No calf tenderness / cord - Neuro Neuro: Alert and oriented X 3, chief deputy 2-12 intact, Normal speech, Other (Grossly normal) - Psych Psych: Normal mood, Normal affect Results - Vitals Vitals: Vital Signs - 24 hr 07/07/21 12:16 Temperature 36.5 C Heart Rate 90 Respiratory 16 Rate Blood Pressure 160/80 H O2 Saturation 98 Oxygen O2 Source Room air PD MEDICAL DECISION MAKING - ED course Complexity details: reviewed results, re-evaluated patient, considered differential, d/w patient ED course: Bladder scan revealed a volume in the bladder of 700 cc of urine. Krishnan cathete r was placed, along with leg bag, and patient reported relief of symptoms. We have discussed the need for follow-up with urology in 2 to 3 days for removal of catheter. We have discussed the usual indications for return. Departure - Departure Disposition: 01 Home, Self Care Clinical Impression: Urinary retention Condition: Stable Instructions: ED Catheter Care Krishnan, ED Retention Urinary Male Comments: Please call your urologist's office first thing when you get home from the emergency department to set up a follow-up appointment regarding your urinary retention and removal of the Krishnan catheter.
[2021-07-07] MEDS ORDERED: LIDOCAINE 2% URO-JET 5 ML SYRINGE UR STA (12:46)
== END 2021-07-07 13:19 | disposition home or self-care (01) ==
LOC: ED 12:12
DX: N40.1 Benign prostatic hyperplasia with lower urinary tract symptoms (principal); R33.8 Other retention of urine
CPT/HCPCS: 51702; 99282; 99283

== ENCOUNTER 2021-12-15 09:21 | Outpatient (CLI) | payer MEDICARE, BC, OTHER ==
[2021-12-15 11:40] LABS: BASOPHILS # (AUTO) 0.1 10^3/uL (0.0-0.1); BASOPHILS % (AUTO) 1.4 %; EOSINOPHILS # (AUTO) 0.4 10^3/uL (0.0-0.7); EOSINOPHILS % (AUTO) 7.9 %; HCT - HEMATOCRIT 51.6 % (42.0-52.0); HGB - HEMOGLOBIN 17.2 g/dL (14.0-18.0); LYMPHOCYTES # (AUTO) 1.5 10^3/uL (1.5-3.5); LYMPHOCYTES % (AUTO) 29.8 %; MEAN CORPUSCULAR HEMOGLOBIN 30.7 pg (27.0-31.0); MEAN CORPUSCULAR HGB CONC 33.3 g/dL (32.0-36.0); MONOCYTES # (AUTO) 0.4 10^3/uL (0.0-1.0); MONOCYTES % (AUTO) 8.5 %; NEUTROPHILS # (AUTO) 2.6 10^3/uL (1.5-6.6); NEUTROPHILS % (AUTO) 52.2 %; PLT - PLATELET COUNT 275 10^3/uL (130-450); RED BLOOD COUNT 5.61 10^6/uL (4.70-6.10); RED CELL DISTRIBUTION WIDTH 13.1 % (12.0-15.0); WHITE BLOOD COUNT 4.9 x10^3/uL (4.8-10.8)
[2021-12-15 12:15] LABS: ALBUMIN 4.3 g/dL (3.2-5.5); ALBUMIN/GLOBULIN RATIO 1.3 (1.0-2.2); ALKALINE PHOSPHATASE 72 IU/L (42-121); ALT ALANINE AMINOTRANSFERASE 25 IU/L (10-60); AST ASPARTATE AMINOTRANSFERASE 24 IU/L (10-42); BILIRUBIN,TOTAL 0.6 mg/dL (0.2-1.0); BUN - BLOOD UREA NITROGEN 25 mg/dL (6-20); CALCIUM 9.5 mg/dL (8.5-10.3); CARBON DIOXIDE - CO2 31 mmol/L (21-32); CHLORIDE 101 mmol/L (101-111); CHOLESTEROL 198 mg/dL; CREATININE 0.8 mg/dL (0.6-1.2); GFR - MDRD 95 (>89); GLUCOSE 103 mg/dL (70-100); HDL CHOLESTEROL 49 mg/dL; LDL CHOLESTEROL,CALCULATED 138 mg/dL; LDL/HDL RATIO 2.8 (<3.6); POTASSIUM 4.6 mmol/L (3.5-5.0); SODIUM 140 mmol/L (135-145); TOTAL PROTEIN 7.5 g/dL (6.7-8.2); TRIGLYCERIDES 53 mg/dL; VLDL CHOLESTEROL 11 mg/dL
[2021-12-15 12:17] LABS: THYROID STIMULATING HORMONE 0.07 uIU/mL (0.34-5.60)
[2021-12-15 12:56] LABS: FREE T4 (FREE THYROXINE) 1.38 ng/dL (0.58-1.64)
== END 2021-12-15 09:22 | disposition home or self-care (01) ==
LOC: LAB.N 09:21
PROVIDERS: ATTEND Nurse Practitioner Family
DX: K76.0 Fatty (change of) liver, not elsewhere classified (principal); E78.5 Hyperlipidemia, unspecified; E03.9 Hypothyroidism, unspecified; R31.9 Hematuria, unspecified; Z12.5 Encounter for screening for malignant neoplasm of prostate
CPT/HCPCS: 36415; 80053; 80061; 84439; 84443; 85025; G0103; 83721; 84153

== ENCOUNTER 2022-02-26 10:45 | Outpatient (CLI) | payer MEDICARE, BC, OTHER ==
[2022-02-26 18:16] LABS: ALBUMIN 4.2 g/dL (3.2-5.5); ALBUMIN/GLOBULIN RATIO 1.4 (1.0-2.2); BILIRUBIN,TOTAL 0.7 mg/dL (0.2-1.0); CALCIUM 9.3 mg/dL (8.5-10.3); CREATININE 0.9 mg/dL (0.6-1.2); POTASSIUM 4.4 mmol/L (3.5-5.0); TOTAL PROTEIN 7.2 g/dL (6.7-8.2)
[2022-02-26 18:26] LABS: THYROID STIMULATING HORMONE 0.1 uIU/mL (0.34-5.60)
[2022-02-26 19:35] LABS: FREE T4 (FREE THYROXINE) 1.32 ng/dL (0.58-1.64)
== END 2022-02-26 10:46 | disposition home or self-care (01) ==
LOC: LAB.N 10:45
PROVIDERS: ATTEND Nurse Practitioner Family
DX: E03.9 Hypothyroidism, unspecified (principal); Z79.899 Other long term (current) drug therapy
CPT/HCPCS: 36415; 80053; 84439; 84443

== ENCOUNTER 2022-03-31 09:33 | Outpatient (CLI) | payer MEDICARE, BC, OTHER ==
--- NOTE | 2022-04-01 08:40 | Ultrasound Report ---
PROCEDURE: Ankle Brachial Index INDICATIONS: HYPERLIPIDEMIA, RIGHT THIGH PAIN TECHNIQUE: Ankle-brachial indices were obtained bilaterally and recorded. COMPARISONS: None. FINDINGS: Right ankle brachial index (JESUS): 1.1 Left ankle brachial index (JESUS): 1.1 Triphasic waveforms visualized in the posterior tibial artery and dorsalis pedis artery bilaterally. Pressures: Right brachial: 148/83 Right ankle: 165/74 Left brachial: 150/79 Left ankle: 163/68 Healing potential: Ankle pressures >55 mm Hg in non-diabetics and >80 mm Hg in diabetics are likely to achieve primary h ealing of ischemic foot ulcers. Toe pressures >30 mm Hg are likely to achieve primary healing of ischemic foot ulcers, toe or transme tatarsal amputations. IMPRESSION: Normal ankle brachial index bilaterally. Reviewed by: Flavio St MD on 04/01/2022 8:39 AM PDT Approved by: Flavio St MD on 04/01/2022 8:39 AM PDT Station ID: [id number]
== END 2022-03-31 09:34 | disposition home or self-care (01) ==
LOC: DI 09:33
PROVIDERS: ATTEND Nurse Practitioner Family
DX: M79.651 Pain in right thigh (principal); E78.5 Hyperlipidemia, unspecified
CPT/HCPCS: 93922

== ENCOUNTER 2022-06-24 07:12 | Outpatient (CLI) | payer MEDICARE, BC, OTHER ==
[2022-06-24 13:45] LABS: ALBUMIN 4.1 g/dL (3.2-5.5); ALBUMIN/GLOBULIN RATIO 1.2 (1.0-2.2); ALKALINE PHOSPHATASE 71 IU/L (42-121); ALT ALANINE AMINOTRANSFERASE 28 IU/L (10-60); AST ASPARTATE AMINOTRANSFERASE 26 IU/L (10-42); BILIRUBIN,TOTAL 0.9 mg/dL (0.2-1.0); BUN - BLOOD UREA NITROGEN 26 mg/dL (6-20); CALCIUM 9.2 mg/dL (8.5-10.3); CARBON DIOXIDE - CO2 30 mmol/L (21-32); CHLORIDE 99 mmol/L (101-111); CHOL/HDL RATIO 2.8 (<5.0); CHOLESTEROL 128 mg/dL; CREATININE 0.8 mg/dL (0.6-1.2); GFR - MDRD 95 (>89); GLUCOSE 103 mg/dL (70-100); HDL CHOLESTEROL 46 mg/dL; POTASSIUM 4.7 mmol/L (3.5-5.0); SODIUM 137 mmol/L (135-145); THYROID STIMULATING HORMONE 0.33 uIU/mL (0.34-5.60); TOTAL PROTEIN 7.4 g/dL (6.7-8.2); TRIGLYCERIDES 37 mg/dL
[2022-06-24 14:22] LABS: FREE T4 (FREE THYROXINE) 1.37 ng/dL (0.58-1.64)
== END 2022-06-24 07:13 | disposition home or self-care (01) ==
LOC: LAB.N 07:12
PROVIDERS: ATTEND Nurse Practitioner Family
DX: E78.5 Hyperlipidemia, unspecified (principal); I10 Essential (primary) hypertension; E03.9 Hypothyroidism, unspecified
CPT/HCPCS: 36415; 80053; 80061; 83721; 84439; 84443

== ENCOUNTER 2022-10-05 06:54 | Outpatient (CLI) | payer MEDICARE, BC, OTHER ==
--- NOTE | 2022-10-05 12:54 | XRAY Report ---
PROCEDURE: Lumbar Spine Complete INDICATIONS: LUMBAR RADICULOPATHY DEGENERATIVE DISC DISEASE TECHNIQUE: 5 views of the lumbar spine were acquired. COMPARISON: 10/23/2015 FINDINGS: Bones: 5 [id number] vertebrae are present. There is normal bony alignment. No vertebral body compression fractures. No suspicious bony lesions. Oblique images demonstrate no pars defects. There is mild multilevel facet arthropathy. Soft tissues: Overlying bowel gas pattern is normal. No suspicious soft tissue calcifications. IMPRESSION: Mild multilevel facet arthropathy. No evidence acute bony abnormality of lumbar spine. Reviewed by: Blayne German MD on 10/05/2022 12:53 PM PST Approved by: Blayne German MD on 10/05/2022 12:53 PM PST Station ID: [id number]
== END 2022-10-05 06:55 | disposition home or self-care (01) ==
LOC: DI 06:54
PROVIDERS: ATTEND Nurse Practitioner Family
DX: M51.16 Intervertebral disc disorders with radiculopathy, lumbar region (principal); M47.26 Other spondylosis with radiculopathy, lumbar region

== ENCOUNTER 2022-10-14 07:22 | Outpatient (CLI) | payer MEDICARE, BC, OTHER ==
[2022-10-14 12:14] LABS: PHOSPHORUS 3.8 mg/dL (2.5-4.6); URIC ACID 3.9 mg/dL (2.6-7.2)
[2022-10-14 12:19] LABS: BILIRUBIN,URINE NEGATIVE (NEGATIVE); GLUCOSE, URINE (UA) NEGATIVE (NEGATIVE); KETONES,URINE (UA) NEGATIVE (NEGATIVE); LEUKOCYTE ESTERASE, URINE NEGATIVE (NEGATIVE); NITRITE,URINE NEGATIVE (NEGATIVE); OCCULT BLOOD,URINE NEGATIVE (NEGATIVE); PROTEIN,URINE NEGATIVE (NEGATIVE); UROBILINOGEN,URINE 0.2 (NORMAL) E.U./dL (NORMAL)
[2022-10-14 12:21] LABS: CLARITY,URINE CLEAR (CLEAR)
[2022-10-14 12:30] LABS: BACTERIA,URINE Rare /HPF (None Seen); RBC,URINE 0-5 /HPF (0-5); SQUAMOUS EPITHELIAL CELL,UR NONE SEEN (<= Few); WBC,URINE 0-3 /HPF (0-3)
== END 2022-10-14 07:23 | disposition home or self-care (01) ==
LOC: LAB.N 07:22
PROVIDERS: ATTEND Internal Medicine Nephrology
DX: E83.30 Disorder of phosphorus metabolism, unspecified (principal); N25.81 Secondary hyperparathyroidism of renal origin; M10.00 Idiopathic gout, unspecified site; N30.00 Acute cystitis without hematuria
CPT/HCPCS: 36415; 81001; 83970; 84100; 84550

== ENCOUNTER 2022-12-29 07:24 | Outpatient (CLI) | payer MEDICARE, BC, OTHER ==
[2022-12-29 12:19] LABS: THYROID STIMULATING HORMONE 1.47 uIU/mL (0.34-5.60)
== END 2022-12-29 07:25 | disposition home or self-care (01) ==
LOC: LAB.N 07:24
PROVIDERS: ATTEND Nurse Practitioner Family
DX: N40.0 Benign prostatic hyperplasia without lower urinary tract symptoms (principal); E03.9 Hypothyroidism, unspecified
CPT/HCPCS: 36415; 84153; 84443

== ENCOUNTER 2023-01-22 07:33 | Outpatient (CLI) | payer MEDICARE, BC, OTHER ==
--- NOTE | 2023-01-22 14:10 | XRAY Report ---
PROCEDURE: Femur 2V RT INDICATIONS: THIGH PAIN,RIGHT TECHNIQUE: 2 views of the femur were acquired. COMPARISON: None. FINDINGS: Bones: No fractures or dislocations. No suspicious bony lesions. Tricompartmental arthritic rangel es are present at the knee. Soft tissues: No suspicious soft tissue calcifications or masses. IMPRESSION: No visualized acute osseous or soft tissue abnormality. Reviewed by: Tiffanie Peter MD on 01/22/2023 2:09 PM PDT Approved by: Tiffanie Peter MD on 01/22/2023 2:09 PM PDT Station ID: [id number]
== END 2023-01-22 07:34 | disposition home or self-care (01) ==
LOC: DI 07:33
PROVIDERS: ATTEND Nurse Practitioner Family
DX: M79.651 Pain in right thigh (principal)

== ENCOUNTER 2023-07-06 12:00 | Outpatient (CLI) | payer MEDICARE, BC, OTHER ==
[2023-07-06 18:07] LABS: ALBUMIN 4.3 g/dL (3.2-5.5); ALBUMIN/GLOBULIN RATIO 1.7 (1.0-2.2); ALKALINE PHOSPHATASE 74 IU/L (42-121); ALT ALANINE AMINOTRANSFERASE 19 IU/L (10-60); AST ASPARTATE AMINOTRANSFERASE 19 IU/L (10-42); BILIRUBIN,TOTAL 0.4 mg/dL (0.2-1.0); BUN - BLOOD UREA NITROGEN 27 mg/dL (6-20); CALCIUM 9.8 mg/dL (8.5-10.3); CARBON DIOXIDE - CO2 33 mmol/L (21-32); CHLORIDE 103 mmol/L (101-111); CHOL/HDL RATIO 2.7 (<5.0); CHOLESTEROL 125 mg/dL; CREATININE 0.8 mg/dL (0.6-1.3); GFR - MDRD 94 (>89); GLUCOSE 92 mg/dL (74-104); HDL CHOLESTEROL 46 mg/dL; LDL CHOLESTEROL,CALCULATED 57 mg/dL; LDL/HDL RATIO 1.2 (<3.6); POTASSIUM 4.1 mmol/L (3.5-4.5); SODIUM 140 mmol/L (135-145); TOTAL PROTEIN 6.8 g/dL (6.4-8.9); TRIGLYCERIDES 110 mg/dL (48-352); VLDL CHOLESTEROL 22 mg/dL
[2023-07-06 18:21] LABS: BASOPHILS # (AUTO) 0.1 10^3/uL (0.0-0.1); BASOPHILS % (AUTO) 0.8 %; EOSINOPHILS # (AUTO) 0.2 10^3/uL (0.0-0.7); EOSINOPHILS % (AUTO) 1.5 %; HCT - HEMATOCRIT 47.6 % (42.0-52.0); HGB - HEMOGLOBIN 15.3 g/dL (14.0-18.0); LYMPHOCYTES # (AUTO) 1.9 10^3/uL (1.5-3.5); LYMPHOCYTES % (AUTO) 19.6 %; MEAN CORPUSCULAR HEMOGLOBIN 30.3 pg (27.0-31.0); MEAN CORPUSCULAR HGB CONC 32.1 g/dL (32.0-36.0); MEAN CORPUSCULAR VOLUME 94.3 fL (80.0-94.0); MEAN PLATELET VOLUME 10.1 fL (7.4-11.4); MONOCYTES # (AUTO) 0.8 10^3/uL (0.0-1.0); MONOCYTES % (AUTO) 7.7 %; NEUTROPHILS # (AUTO) 6.9 10^3/uL (1.5-6.6); NEUTROPHILS % (AUTO) 70.2 %; PLT - PLATELET COUNT 295 10^3/uL (130-450); RED BLOOD COUNT 5.05 10^6/uL (4.70-6.10); RED CELL DISTRIBUTION WIDTH 12.9 % (12.0-15.0); WHITE BLOOD COUNT 9.9 x10^3/uL (4.8-10.8)
[2023-07-06 18:22] LABS: THYROID STIMULATING HORMONE 6.24 uIU/mL (0.34-5.60)
== END 2023-07-06 12:01 | disposition home or self-care (01) ==
LOC: LAB.N 12:00
PROVIDERS: ATTEND Nurse Practitioner Family
DX: I10 Essential (primary) hypertension (principal); N40.0 Benign prostatic hyperplasia without lower urinary tract symptoms; E78.5 Hyperlipidemia, unspecified; E03.9 Hypothyroidism, unspecified
CPT/HCPCS: 36415; 80053; 80061; 83721; 84439; 84443; 85025

== ENCOUNTER 2023-07-29 15:27 | Outpatient (CLI) | payer MEDICARE, BC, OTHER ==
--- NOTE | 2023-07-30 12:25 | MRI Report ---
PROCEDURE: FEMUR/THIGH WO - RT INDICATIONS: RIGHT THIGH PAIN TECHNIQUE: Noncontrast coronal and sagittal T1 spin echo and STIR; axial T1 spin echo and T2 fast spin echo with fat saturation through the right thigh. COMPARISON: Right femur radiographs 01/22/2023. FINDINGS: Image quality: Excellent. Bones: The visualized bone marrow demonstrates normal signal on all sequences. The overlying cortex appears intact. No fractures lines or intra-osseous lesions. Mild degenerative changes are seen in the hips bilaterally. Soft tissues: The scanned muscles demonstrate normal overall bulk and internal signal. There is par tial tearing of the distal right gluteus medius and minimus tendons at their insertions onto the righ t greater trochanter superimposed on chronic tendinosis. There is mild surrounding trochanteric and s ubgluteal bursal fluid. The prostate is enlarged. IMPRESSION: 1.Partial tearing of the distal right gluteus medius and minimus tendons at their insertions onto the greater trochanter superimposed on chronic tendinosis. 2.Mild bilateral hip osteoarthrosis. Reviewed by: Flavio Enamorado MD on 07/30/2023 12:24 PM PST Approved by: Flavio Enamorado MD on 07/30/2023 12:24 PM PST Station ID: [id number]
== END 2023-07-29 15:28 | disposition home or self-care (01) ==
LOC: DI 15:27
PROVIDERS: ATTEND Nurse Practitioner Family
DX: S76.011A Strain of muscle, fascia and tendon of right hip, initial encounter (principal); M16.11 Unilateral primary osteoarthritis, right hip

== ENCOUNTER 2023-10-14 07:27 | Outpatient (CLI) | payer MEDICARE, BC, OTHER ==
[2023-10-14 12:38] LABS: THYROID STIMULATING HORMONE 1.58 uIU/mL (0.34-5.60)
== END 2023-10-14 07:28 | disposition home or self-care (01) ==
LOC: LAB.N 07:27
PROVIDERS: ATTEND Nurse Practitioner Family
DX: E03.9 Hypothyroidism, unspecified (principal)
CPT/HCPCS: 36415; 84443

== ENCOUNTER 2024-01-07 07:23 | Outpatient (CLI) | payer MEDICARE, BC, OTHER ==
[2024-01-07 12:59] LABS: CALCIUM 9.6 mg/dL (8.5-10.3); CREATININE 0.8 mg/dL (0.6-1.3); POTASSIUM 4.1 mmol/L (3.5-4.5); THYROID STIMULATING HORMONE 1.35 uIU/mL (0.34-5.60)
== END 2024-01-07 07:24 | disposition home or self-care (01) ==
LOC: LAB.N 07:23
PROVIDERS: ATTEND Nurse Practitioner Family
DX: I10 Essential (primary) hypertension (principal); N40.0 Benign prostatic hyperplasia without lower urinary tract symptoms; E03.9 Hypothyroidism, unspecified
CPT/HCPCS: 36415; 80048; 84153; 84443

== ENCOUNTER 2024-03-09 12:11 | Outpatient (CLI) | payer MEDICARE, BC, OTHER | END 2024-03-09 12:12 | disposition home or self-care (01) | LOC: DI 12:11 | PROVIDERS: ATTEND Nurse Practitioner Family | DX: I34.0 Nonrheumatic mitral (valve) insufficiency (principal); R94.31 Abnormal electrocardiogram [ECG] [EKG]; I10 Essential (primary) hypertension | CPT/HCPCS: 93307 ==